=== PATIENT | female | born 1990 | race Caucasian/White ===

== ENCOUNTER 2017-03-14 08:56 | Outpatient (CLI) | payer MEDICAID ==
[~2017-03-14] VITALS: Ht 154.9 cm; Wt 67.6 kg
[2017-03-14 09:10] VITALS: Ht 154.9 cm; Wt 67.6 kg
[2017-03-14] MEDS ORDERED: PRENAT PO (09:10)
[2017-03-14 09:11] VITALS: BP 112/73; PULSE 90
--- NOTE | 2017-03-14 10:30 | CONS ---
Date/Time of Note Date/Time of Note DATE: 03/14/17 TIME: 10:26 Assessment/Plan Assessment/Plan Additional Assessment/Plan 26 y/o at 24w 5d with pelvic pain, suspect musculoskeletal -UA, CL -f/u results Consultation Date/Type/Reason Admit Date/Time Date of Consultation: March 14, 2017 Reason for Consultation pelvic pain Hx of Present Illness 26 y/o at 24w 5d who presents with lower abdominal pain. Pain is constant , not relieved with rest. Denies LOF, VB, UCs, dysuria. +FM. h/o x2. Per HPI. Other systems negative. Past Medical History Medical History: no pertinent history Past Surgical History Past Surgical Hx: no surgical history Social History Denies habits. Smoking Status: Never smoker Exam/Review of Systems Vital Signs Vitals Vital Signs Date Time Temp Pulse Resp B/P Pulse Ox O2 Delivery O2 Flow Rate FiO2 03/14/17 09:11 98.6 90 112/73 Exam Gen: NAD HEENT: NCAT CV: RRR Pulm: CTAB Abd: gravid, NT Back: no CVAT Ext: NT FHT: reassuring [place]: no LUCHO Castañeda March 14, 2017 10:30
[2017-03-14 10:56] LABS: ADD UMIC NO; URINE BILIRUBIN (Dip) NEGATIVE (NEGATIVE); URINE BLOOD (Dip) NEGATIVE (NEGATIVE); URINE COLOR LT. YELLOW (YELLOW); URINE KETONES (Dip) NEGATIVE (NEGATIVE); URINE LEUKOCYTE ESTERASE (Dip) NEGATIVE (NEGATIVE); URINE NITRITE (Dip) NEGATIVE (NEGATIVE); URINE TOTAL PROTEIN (Dip) NEGATIVE (NEGATIVE); URINE UROBILINOGEN (Dip) 0.2 E.U./dL (0.1-1.0)
--- NOTE | 2017-03-14 12:33 | RADRPT ---
PROCEDURE: Obstetrical ultrasound CLINICAL INDICATION: Pre-term labor. TECHNIQUE: Anna-scale sonographic images of the uterus and cervix. Transabdominal and transvaginal scanning was performed. COMPARISON: None. FINDINGS: Presentation: Cephalic heart rate is 144 beats per minute. Anterior placenta without evidence of previa or abruption. The cervix is closed with a length of 3.1 cm. IMPRESSION: The cervix is closed with a length of 3.1 cm as visualized transvaginally. RPTAT: AADD .Giuseppe Sharma MD, MD Date Time Electronically viewed and signed by .Giuseppe Sharma MD, on 03/14/2017 12:33 .B/
== END 2017-03-14 13:00 | disposition home or self-care (01) ==
LOC: OBT 08:56 → L-D 08:58 → OBT 13:00
PROVIDERS: ATTEND Obstetrics & Gynecology
DX: O26.892 Other specified pregnancy related conditions, second trimester (principal); R10.30 Lower abdominal pain, unspecified; R10.2 Pelvic and perineal pain
CPT/HCPCS: 76817; 81003; Z7500; G0463